=== PATIENT | male | born 1950 | race Hispanic/Latino ===

== ENCOUNTER 2017-11-28 20:05 | Emergency (ER) | payer MEDICARE ==
[~2017-11-28 20:05] MED LIST: ASPI-1181 PO; CLOP75TA32 PO; INSU100I24 SQ; LISI10TA7 PO; METF500T6 PO; METO50TA18 PO; PRAV40TA3 PO; PREG200C PO
== END 2017-11-28 20:58 | disposition home or self-care (01) ==
LOC: EDH 20:05
DX: T81.89XD Other complications of procedures, not elsewhere classified, subsequent encounter (principal); I10 Essential (primary) hypertension; E78.5 Hyperlipidemia, unspecified; E11.9 Type 2 diabetes mellitus without complications; I25.10 Atherosclerotic heart disease of native coronary artery without angina pectoris; Z95.1 Presence of aortocoronary bypass graft; Z98.890 Other specified postprocedural states
CPT/HCPCS: 99281

== ENCOUNTER → 2018-02-12 | Outpatient (CLI) | payer MEDICARE | END | disposition home or self-care (01) | LOC: SHCH 10:00 | PROVIDERS: ATTEND Internal Medicine Cardiovascular Disease | DX: I65.23 Occlusion and stenosis of bilateral carotid arteries (principal) | CPT/HCPCS: 93880 ==

== ENCOUNTER → 2018-08-05 | Outpatient (CLI) | payer MEDICARE ==
[~2018-08-05] MED LIST changes: +METF-444 PO; -METF500T6 PO
== END | disposition home or self-care (01) ==
LOC: SHCH 12:54
PROVIDERS: ATTEND Internal Medicine Cardiovascular Disease
DX: I65.23 Occlusion and stenosis of bilateral carotid arteries (principal); I73.9 Peripheral vascular disease, unspecified; R09.89 Other specified symptoms and signs involving the circulatory and respiratory systems; M19.90 Unspecified osteoarthritis, unspecified site; I10 Essential (primary) hypertension; I25.810 Atherosclerosis of coronary artery bypass graft(s) without angina pectoris; E11.9 Type 2 diabetes mellitus without complications; E78.5 Hyperlipidemia, unspecified
CPT/HCPCS: 93880; 93970

== ENCOUNTER 2018-09-09 07:45 | Day surgery (SDC) | payer MEDICARE ==
[2018-09-04 13:35] VITALS: BP 150/76
[2018-09-04 13:43] LABS: EOSINOPHILS % (AUTO) 4.1 % (0.0-8.0); HEMATOCRIT 37.1 % (42-54); LYMPHOCYTES % (AUTO) 19.7 % (21.0-51.0); MEAN CORPUSCULAR HEMOGLOBIN 29.1 pg (27.0-33.0); MEAN CORPUSCULAR HGB CONC 33.1 g/dL (32.0-36.0); MONOCYTES % (AUTO) 9.7 % (3.0-13.0); NEUTROPHILS % (AUTO) 65.5 % (40.0-77.0); PLATELET COUNT (AUTO) 186 K/uL (130-400); RED BLOOD CELL COUNT(AUTO) 4.22 MIL/uL (4.50-6.20); RED CELL DISTRIBUTION WIDTH 16.3 % (11.0-15.5); WHITE BLOOD COUNT (AUTO) 8.8 K/uL (4.8-10.8)
[2018-09-04 13:51] LABS: APPEARANCE,URINE Clear (CLEAR); BILIRUBIN,URINE Negative (NEGATIVE); COLOR,URINE Yellow (YELLOW); GLUCOSE, URINE (UA) Negative (NEGATIVE); KETONES,URINE Negative (NEGATIVE); LEUKOCYTE ESTERASE ,URINE Negative (NEGATIVE); NITRATE,URINE Negative (NEGATIVE); OCCULT BLOOD,URINE Negative (NEGATIVE); PROTEIN,URINE Negative (NEGATIVE); UROBILINOGEN,URINE 0.2 mg/dL (0.2-1.0)
[2018-09-04 13:52] LABS: CREATININE 1.2 mg/dL (0.5-1.5); POTASSIUM 4.6 mmol/L (3.5-5.1)
[2018-09-04 14:11] LABS: INR 1.01 (0.85-1.15); PROTHROMBIN TIME 10.6 SEC (9.6-11.6)
[2018-09-04 14:18] LABS: PARTIAL THROMBOPLASTIN TIME 26.4 SEC (26.3-35.5)
[2018-09-09] VITALS (21 sets, daily range): BP systolic 134–185; BP diastolic 79–103
[~2018-09-09] VITALS: Ht 172.7 cm; Wt 95.3 kg
[2018-09-09] MEDS ORDERED: SODIUM CHLORIDE 0.9% 1000ML 1,000 ML IV ONE (08:51)
[2018-09-09] MEDS ORDERED: HEPARIN SODIUM 1000UNIT/ML 10ML VIAL ONE (11:09)
[2018-09-09] MEDS ORDERED: NITROGLYCERIN 5 MG/ML 10 ML VIAL IV ONE (11:09)
[2018-09-09] MEDS ORDERED: LIDOCAINE HCL-MPF 2% 5ML VIAL ONE ×2 (11:09→12:07)
[2018-09-09] MEDS ORDERED: IODIXANOL 320 MG/ML 100 ML VIAL ONE (11:10)
[2018-09-09] MEDS ORDERED: MIDAZOLAM HCL 1 MG/ML 2ML VIAL ONE (11:44)
[2018-09-09] MEDS ORDERED: MEPERIDINE-PF 25 MG/ML SYG ONE (11:45)
[2018-09-09] MEDS ORDERED: SODIUM CHLORIDE 0.9% 1000ML 1,000 ML IV SCH (13:03)
[2018-09-09] MEDS ORDERED: CLOPIDOGREL BISULFATE 75 MG TAB ONE (13:04)
[2018-09-09] MEDS ORDERED: ASPIRIN 81MG TAB.CHEW ONE (13:04)
[2018-09-09] MEDS ORDERED: LABETALOL 20 MG/4 ML DISP.SYRIN IV PRN (13:15)
[2018-09-09] MEDS ORDERED: DEXTROSE 50%-WATER 50 ML DISP.SYRIN IV PRN (13:15)
[2018-09-09] MEDS ORDERED: GLUCAGON 1MG KIT 1 MG ML IM PRN (13:15)
[2018-09-09] MEDS ORDERED: ACETAMINOPHEN-CODEINE 300/30MG TAB PO PRN (13:15)
[2018-09-09] MEDS ORDERED: ATROPINE SULFATE 0.1 MG/ML 10 ML SYG IVP ONE (13:30)
[2018-09-09] MEDS ORDERED: INSULIN HUMULIN R 100 UNIT/ML 3ML SQ SCH (16:30)
== END 2018-09-09 19:01 | disposition home or self-care (01) ==
LOC: DAH 07:45
PROVIDERS: ATTEND Internal Medicine Cardiovascular Disease
DX: I70.245 Atherosclerosis of native arteries of left leg with ulceration of other part of foot (principal); I10 Essential (primary) hypertension; E78.5 Hyperlipidemia, unspecified; E11.319 Type 2 diabetes mellitus with unspecified diabetic retinopathy without macular edema; I65.21 Occlusion and stenosis of right carotid artery; I65.22 Occlusion and stenosis of left carotid artery; I25.810 Atherosclerosis of coronary artery bypass graft(s) without angina pectoris; I65.23 Occlusion and stenosis of bilateral carotid arteries; Z79.82 Long term (current) use of aspirin; Z79.899 Other long term (current) drug therapy; Z98.890 Other specified postprocedural states; Z95.1 Presence of aortocoronary bypass graft; Z87.891 Personal history of nicotine dependence
CPT/HCPCS: 36415 ×2; 37221; 37224; 71045; 75625; 75710; 80048; 81003; 82948 ×3; 85025; 85347; 85610; 85730; 93005; A4606; C1725; C1769; C1876; C1893; C1894; J0461; J1644 ×2; J3490 ×3; J7030; Q9967; J2175; J2250

== ENCOUNTER → 2019-11-09 | Outpatient (CLI) | payer MEDICARE ==
[~2019-11-09] MED LIST changes: +IOHEXOL-350 50ML VIAL IV ONE; +IOHEXOL-350 75 ML VIAL IV ONE
== END | disposition home or self-care (01) ==
LOC: RAH 08:34
PROVIDERS: ATTEND Internal Medicine Cardiovascular Disease
DX: I70.203 Unspecified atherosclerosis of native arteries of extremities, bilateral legs (principal); I74.3 Embolism and thrombosis of arteries of the lower extremities; I74.5 Embolism and thrombosis of iliac artery; I74.09 Other arterial embolism and thrombosis of abdominal aorta; I71.4 Abdominal aortic aneurysm, without rupture; I70.8 Atherosclerosis of other arteries; I25.10 Atherosclerotic heart disease of native coronary artery without angina pectoris; I51.7 Cardiomegaly; J98.11 Atelectasis; M47.815 Spondylosis without myelopathy or radiculopathy, thoracolumbar region; K44.9 Diaphragmatic hernia without obstruction or gangrene; Z89.9 Acquired absence of limb, unspecified; Z96.652 Presence of left artificial knee joint
CPT/HCPCS: 75635; Q9967 ×2

== ENCOUNTER 2019-12-22 08:55 | Day surgery (SDC) | payer MEDICARE ==
[2019-12-18 11:10] VITALS: BP 136/72
[2019-12-18 11:31] LABS: BASOPHILS % (AUTO) 0.9 % (0.0-5.0); EOSINOPHILS % (AUTO) 5.1 % (0.0-8.0); HEMATOCRIT 41.9 % (42-54); LYMPHOCYTES % (AUTO) 16.8 % (21.0-51.0); MEAN CORPUSCULAR HEMOGLOBIN 29.9 pg (27.0-33.0); MEAN CORPUSCULAR HGB CONC 32.2 g/dL (32.0-36.0); MEAN CORPUSCULAR VOLUME 92.9 fL (79-99); MONOCYTES % (AUTO) 9.1 % (3.0-13.0); NEUTROPHILS % (AUTO) 67.8 % (40.0-77.0); PLATELET COUNT (AUTO) 207 K/uL (130-400); RED BLOOD CELL COUNT(AUTO) 4.51 MIL/uL (4.50-6.20); RED CELL DISTRIBUTION WIDTH 14.2 % (11.0-15.5); WHITE BLOOD COUNT (AUTO) 10.6 K/uL (4.8-10.8)
[2019-12-18 11:36] LABS: APPEARANCE,URINE Clear (CLEAR); BILIRUBIN,URINE Negative (NEGATIVE); COLOR,URINE Yellow (YELLOW); GLUCOSE, URINE (UA) Negative (NEGATIVE); KETONES,URINE Negative (NEGATIVE); LEUKOCYTE ESTERASE ,URINE Negative (NEGATIVE); NITRATE,URINE Negative (NEGATIVE); OCCULT BLOOD,URINE Negative (NEGATIVE); PROTEIN,URINE Negative (NEGATIVE)
[2019-12-18 11:40] LABS: CREATININE 1.5 mg/dL (0.5-1.5); POTASSIUM 4.8 mmol/L (3.5-5.1)
[2019-12-18 12:01] LABS: PARTIAL THROMBOPLASTIN TIME 26.1 SEC (26.3-35.5); PROTHROMBIN TIME 10.5 SEC (9.6-11.6)
--- NOTE | 2019-12-18 12:37 | NUR ---
WOUND LEFT FOOT WOUND, DRAINING, COVERED, SEES WOUND CARE . PER JUNIE RAIN INFECTION CONTROL, PLACE ON CONTACT PREC. Addendum: 12/18/19 at 1238 by SAL AMAYA RN RN Amended: Links added.
--- NOTE | 2019-12-18 13:54 | NUR ---
DODIE GARCIA INFORMED THAT PT IS TAKING ANTIBIOTICS FOR LEFT FOOT WOUND. NO FURTHER ORDERS, MAY PROCEED WITH PLANNED PROCEDURE.
--- NOTE | 2019-12-21 14:59 | NUR ---
LABS INFORMED DODIE CANTU OF ABNORMAL BUN/CREA. ORDERS RECEIVED TO HYDRATE PT ON ARRIVAL DOS WITH NS @150ML/HR AND REPEAT BMP.
[~2019-12-22] VITALS: Ht 170.2 cm; Wt 91.6 kg
[2019-12-22] VITALS (22 sets, daily range): BP systolic 104–140; BP diastolic 64–79
[~2019-12-22 08:55] MED LIST changes: +DOXY100C40 PO; +HYDR12.54 PO; -IOHEXOL-350 50ML VIAL IV ONE; -IOHEXOL-350 75 ML VIAL IV ONE; +LINA5TAB PO; -METF-444 PO; -METO50TA18 PO; +SODIUM CHLORIDE 0.9% 1000ML 1,000 ML IV SCH; +SODIUM CHLORIDE 0.9% 500ML 500 ML IV SCH
[2019-12-22 12:15] LABS: CREATININE 1.2 mg/dL (0.5-1.5); POTASSIUM 4.1 mmol/L (3.5-5.1)
[2019-12-22] MEDS ORDERED: MEPERIDINE-PF 25 MG/ML SYG ONE ×2 (12:50→14:11)
[2019-12-22] MEDS ORDERED: HEPARIN SODIUM 1000UNIT/ML 10ML VIAL ONE (12:50)
[2019-12-22] MEDS ORDERED: IODIXANOL 320 MG/ML 100 ML VIAL ONE (12:50)
[2019-12-22] MEDS ORDERED: MIDAZOLAM HCL 1 MG/ML 2ML VIAL ONE ×2 (12:50→14:11)
[2019-12-22] MEDS ORDERED: LIDOCAINE HCL 2% 20ML ONE (12:51)
[2019-12-22] MEDS ORDERED: NITROGLYCERIN 1 MG/VIAL VIAL IV ONE (12:56)
[2019-12-22] MEDS ORDERED: SODIUM BICARB 50MEQ 50ML VIAL ONE (12:56)
[2019-12-22] MEDS ORDERED: GLUCAGON 1MG KIT 1 MG ML IM PRN (14:45)
[2019-12-22] MEDS ORDERED: SODIUM CHLORIDE 0.9% 1000ML 1,000 ML IV SCH (14:45)
[2019-12-22] MEDS ORDERED: DEXTROSE 50%-WATER 50 ML DISP.SYRIN IV PRN (14:45)
[2019-12-22] MEDS ORDERED: ACETAMINOPHEN-CODEINE 300/30MG TAB PO PRN ×2 (14:45)
[2019-12-22] MEDS ORDERED: INSULIN HUMULIN R 100 UNIT/ML 3ML SQ SCH (16:30)
[2019-12-22] MEDS ORDERED: ATROPINE SULFATE 0.1 MG/ML 10 ML SYG IVP ONE (17:02)
--- NOTE | 2019-12-22 18:40 | NUR ---
Pt settled into room 221. Report called to JUNIE Lehman prior to taking pt upstairs. Care rendered over to JUNIE Lehman at bedside. Site to right groin remains soft, with minimal tenderness, dressing remains dry, clean and intact. Pt and JUNIE Lehman report no further questions at this time.
--- NOTE | 2019-12-22 18:40 | NUR ---
Patient arrived to room 221 with Chelo Perla RN. Patient's right groin site was assessed, it was soft, non-tender, clean dry and intact. popiteal pulse was palpated but weak with capillary refill to stump less than 3 seconds. Sensation was intact to all extremities, a/o x4. Vital signs were taken temp 97, pulse 72, respiratory rate 20, blood pressure 116/62, and O2 sat 98%.
== END 2019-12-22 22:15 | disposition home or self-care (01) ==
LOC: DAH 08:55
PROVIDERS: ATTEND Internal Medicine Cardiovascular Disease
DX: I70.212 Atherosclerosis of native arteries of extremities with intermittent claudication, left leg (principal); I10 Essential (primary) hypertension; E78.5 Hyperlipidemia, unspecified; E11.9 Type 2 diabetes mellitus without complications; I25.10 Atherosclerotic heart disease of native coronary artery without angina pectoris; Z79.82 Long term (current) use of aspirin; Z79.899 Other long term (current) drug therapy; Z89.511 Acquired absence of right leg below knee; Z98.890 Other specified postprocedural states; Z95.1 Presence of aortocoronary bypass graft; Z87.891 Personal history of nicotine dependence; Z79.4 Long term (current) use of insulin; Z83.3 Family history of diabetes mellitus; Z82.49 Family history of ischemic heart disease and other diseases of the circulatory system
CPT/HCPCS: 36415 ×2; 37224; 71045; 75625; 75710; 80048 ×2; 81003; 82948 ×2; 85025; 85610; 85730 ×2; 93005; 96360; 96361; A4215; A4216; A4221; A4222; A4223 ×3; A4606; A4663; C1769; C1893; C1894 ×2; C2623; J1644 ×2; J2175 ×2; J2250 ×2; J3490 ×3; J7030; Q9967; 99156; 99157; J0461

== ENCOUNTER 2023-12-30 06:40 | Day surgery (SDC) | payer OTHER ==
[2023-12-27 09:21] LABS: BASOPHILS # (AUTO) 0.09 K/uL (0.00-0.20); EOSINOPHILS # (AUTO) 0.27 K/uL (0.00-0.70); HEMATOCRIT 44.1 % (42-54); IMMATURE GRANULOCYTE ABSOLUTE 0.04 K/uL (0-1); LYMPHOCYTES # (AUTO) 1.6 K/uL (1.0-4.8); LYMPHOCYTES % (AUTO) 18.2 % (21.0-51.0); MEAN CORPUSCULAR HEMOGLOBIN 29.8 pg (27.0-33.0); MEAN CORPUSCULAR HGB CONC 32.2 g/dL (32.0-36.0); MEAN CORPUSCULAR VOLUME 92.5 fL (79-99); MONOCYTES # (AUTO) 0.6 K/uL (0.1-1.0); MONOCYTES % (AUTO) 6.5 % (3.0-13.0); NEUTROPHILS # (AUTO) 6.4 K/uL (1.8-7.7); NEUTROPHILS % (AUTO) 70.9 % (40.0-77.0); PLATELET COUNT (AUTO) 246 K/uL (130-400); RED BLOOD CELL COUNT(AUTO) 4.77 MIL/uL (4.50-6.20); RED CELL DISTRIBUTION WIDTH 15.7 % (11.0-15.5)
[2023-12-27 09:30] LABS: CREATININE 1.4 mg/dL (0.5-1.5); POTASSIUM 4.9 mmol/L (3.5-5.1)
[2023-12-27 09:34] LABS: INR 0.97 (0.85-1.15); PROTHROMBIN TIME 11.3 SEC (9.6-11.6)
[2023-12-27 09:35] LABS: PARTIAL THROMBOPLASTIN TIME 27.4 SEC (26.3-35.5)
[2023-12-27 09:39] VITALS: BP 165/75; PULSE 120; RESP 18
[2023-12-27 09:45] LABS: B-TYPE NATRIURETIC PEPTIDE 512 pg/mL (0-100)
[2023-12-30] VITALS (11 sets, daily range): BP systolic 94–146; BP diastolic 54–72; PULSE 71–92; RESP 10–16
[~2023-12-30] VITALS: Ht 170.2 cm; Wt 71.9 kg
[~2023-12-30 06:40] MED LIST changes: -ASPI-1181 PO; +ASPI-1443 PO; +DOXY-469 PO; -DOXY100C40 PO; +LISI10TA24 PO; -LISI10TA7 PO; -SODIUM CHLORIDE 0.9% 1000ML 1,000 ML IV SCH; -SODIUM CHLORIDE 0.9% 500ML 500 ML IV SCH
[2023-12-30] MEDS ORDERED: 0.9%NACL 1000ML 1,000 ML IV ONE (07:09)
[2023-12-30] MEDS ORDERED: HEPARIN 10,000 UNIT/10ML (1,000 UNIT/ML) VIAL ONE (07:36)
[2023-12-30] MEDS ORDERED: SODIUM BICARB 50MEQ 50ML VIAL 50 ML ONE (07:36)
[2023-12-30] MEDS ORDERED: IOHEXOL-350 50ML VIAL IV ONE (07:36)
[2023-12-30] MEDS ORDERED: LIDOCAINE HCL 400MG/20ML VIAL ONE (07:36)
[2023-12-30] MEDS ORDERED: IOHEXOL 350 MG/ML 100ML INFUS..BTL IV ONE (07:36)
[2023-12-30] MEDS ORDERED: MEPERIDINE-PF 25 MG/ML SYG ONE ×3 (07:37→09:01)
[2023-12-30] MEDS ORDERED: MIDAZOLAM HCL 1 MG/ML 2ML VIAL ONE ×3 (07:37→09:01)
[2023-12-30] MEDS ORDERED: NITROGLYCERIN 50MG VIAL ONE (07:38)
[2023-12-30] MEDS ORDERED: INSLAN SQ (07:42)
[2023-12-30] MEDS ORDERED: MIDO5TAB4 PO (07:42)
[2023-12-30] MEDS ORDERED: TAMS-1 PO (07:42)
[2023-12-30] MEDS ORDERED: METO25TA3 PO (07:42)
[2023-12-30] MEDS ORDERED: LOSA25TA41 PO (07:42)
[2023-12-30] MEDS ORDERED: METF-444 PO (07:42)
[2023-12-30] MEDS ORDERED: ATROPINE 1MG SYG IVP ONE (09:48)
[2023-12-30] MEDS ORDERED: IOHEXOL-350 75 ML VIAL IV ONE (10:10)
[2023-12-30] MEDS ORDERED: LABETALOL 20MG SYG IV ONE (10:30)
[2023-12-30] MEDS ORDERED: CLOPIDOGREL 300MG TAB ONE (10:33)
[2023-12-30] MEDS ORDERED: ASPIRIN 325MG EC TAB PO ONE (10:33)
[2023-12-30] MEDS ORDERED: ACETAMINOPHEN WITH CODEINE 1 TAB TAB PO PRN ×2 (11:00)
[2023-12-30] MEDS ORDERED: ONDANSETRON 4MG INJ IVP PRN (11:00)
== END 2023-12-30 15:20 | disposition home or self-care (01) ==
LOC: DAH 06:40
PROVIDERS: ATTEND Internal Medicine Cardiovascular Disease
DX: I25.119 Atherosclerotic heart disease of native coronary artery with unspecified angina pectoris (principal); I25.5 Ischemic cardiomyopathy; R57.0 Cardiogenic shock; I25.82 Chronic total occlusion of coronary artery; I25.719 Atherosclerosis of autologous vein coronary artery bypass graft(s) with unspecified angina pectoris; I49.3 Ventricular premature depolarization; I72.8 Aneurysm of other specified arteries; E11.22 Type 2 diabetes mellitus with diabetic chronic kidney disease; I12.9 Hypertensive chronic kidney disease with stage 1 through stage 4 chronic kidney disease, or unspecified chronic kidney disease; N18.31 Chronic kidney disease, stage 3a; E11.51 Type 2 diabetes mellitus with diabetic peripheral angiopathy without gangrene; E11.319 Type 2 diabetes mellitus with unspecified diabetic retinopathy without macular edema; I25.2 Old myocardial infarction; E78.5 Hyperlipidemia, unspecified; Z86.73 Personal history of transient ischemic attack (TIA), and cerebral infarction without residual deficits; Z87.891 Personal history of nicotine dependence; Z82.49 Family history of ischemic heart disease and other diseases of the circulatory system; Z79.82 Long term (current) use of aspirin; Z79.01 Long term (current) use of anticoagulants; Z79.899 Other long term (current) drug therapy; Z95.5 Presence of coronary angioplasty implant and graft
CPT/HCPCS: 80048; 83880; 85025; 85610; 85730; 36415 ×2; 71045; 93005; 85347 ×2; 82948 ×2; 76882; 93459; C9600; C1769 ×4; C1894 ×3; C1874 ×2; C1760; C1887 ×2; C1725 ×2; J3490 ×3; J7030; J1644 ×3; J2250 ×3; J2175 ×3; Q9967; A4215; A4222; A4221; A4663; A4216; A4606; C9601; Q9965 ×2; A4223 ×3; 99156; 99157; J0461

== ENCOUNTER 2024-05-24 18:10 | Inpatient (IN) | payer OTHER ==
[~2024-05-24] VITALS: Ht 170.2 cm; Wt 80.4 kg
[~2024-05-24 18:10] MED LIST changes: -ASPI-1443 PO; -DOXY-469 PO; -HYDR12.54 PO; +INSLAN SQ; -INSU100I24 SQ; -LINA5TAB PO; -LISI10TA24 PO; +LOSA25TA41 PO; +METF-444 PO; +METO25TA3 PO; +MIDO5TAB4 PO; +TAMS-1 PO
[2024-05-24 18:44] LABS: BASOPHILS # (AUTO) 0.08 K/uL (0.00-0.20); BASOPHILS % (AUTO) 1.2 % (0.0-5.0); EOSINOPHILS % (AUTO) 1.5 % (0.0-8.0); HEMATOCRIT 35.9 % (42-54); LYMPHOCYTES # (AUTO) 0.9 K/uL (1.0-4.8); LYMPHOCYTES % (AUTO) 13.3 % (21.0-51.0); MEAN CORPUSCULAR HEMOGLOBIN 30.6 pg (27.0-33.0); MEAN CORPUSCULAR HGB CONC 32.9 g/dL (32.0-36.0); MEAN CORPUSCULAR VOLUME 93.2 fL (79-99); MONOCYTES # (AUTO) 0.6 K/uL (0.1-1.0); MONOCYTES % (AUTO) 9.5 % (3.0-13.0); NEUTROPHILS # (AUTO) 4.9 K/uL (1.8-7.7); NEUTROPHILS % (AUTO) 74.5 % (40.0-77.0); PLATELET COUNT (AUTO) 197 K/uL (130-400); RED BLOOD CELL COUNT(AUTO) 3.85 MIL/uL (4.50-6.20); RED CELL DISTRIBUTION WIDTH 15.5 % (11.0-15.5); WHITE BLOOD COUNT (AUTO) 6.5 K/uL (4.8-10.8)
[2024-05-24 19:02] LABS: CREATININE 1.7 mg/dL (0.5-1.3); POTASSIUM 4.6 mmol/L (3.5-5.1)
[2024-05-24 19:11] LABS: ALBUMIN 3.3 g/dL (3.5-5.0); BILIRUBIN,TOTAL 0.7 mg/dL (0.2-1.0); MAGNESIUM 1.6 mg/dL (1.80-2.40); TOTAL PROTEIN, SERUM 7.1 g/dL (6.0-8.3)
[2024-05-24 19:28] LABS: B-TYPE NATRIURETIC PEPTIDE 2010 pg/mL (0-100)
[2024-05-24 19:54] LABS: INR 1.26 (0.85-1.15); PARTIAL THROMBOPLASTIN TIME 27.8 SEC (26.3-35.5); PROTHROMBIN TIME 13.1 SEC (9.6-11.6)
[2024-05-24] MEDS: ENOXAPARIN SODIUM 80 MG/0.8 ML SQ ONE (21:02)
[2024-05-24] MEDS: METOPROLOL TARTRATE 1 MG/ML 5ML VIAL IV ONE (21:05)
[2024-05-24] MEDS: MAGNESIUM 2GM PREMIX 50ML 50 ML IV SCH (21:05)
[2024-05-24] MEDS ORDERED: HYDRALAZINE 20MG/ML VIAL IV PRN (21:30)
[2024-05-24] MEDS ORDERED: POTASSIUM CHLORIDE 10% ELIXIR 20 MEQ/15 ML UDCUP PO PRN (21:30)
[2024-05-24] MEDS ORDERED: POTASSIUM CHLORIDE 20MEQ/100ML 100 ML IV PRN (21:30)
[2024-05-24] MEDS ORDERED: NITROGLYCERIN 0.4 MG SL TAB SL PRN (21:30)
[2024-05-24] MEDS ORDERED: ONDANSETRON 4MG INJ IV PRN (21:30)
[2024-05-25] VITALS (10 sets, daily range): BP systolic 99–127; BP diastolic 56–71; PULSE 74–98; RESP 18–20; TEMP 98.9; O2SAT 96–99
[2024-05-25 00:40] LABS: APPEARANCE,URINE CLEAR (CLEAR); BILIRUBIN,URINE NEGATIVE (NEGATIVE); COLOR,URINE YELLOW (YELLOW); GLUCOSE, URINE (UA) NEGATIVE (NEGATIVE); KETONES,URINE NEGATIVE (NEGATIVE); LEUKOCYTE ESTERASE ,URINE NEGATIVE Leu/uL (NEGATIVE); NITRATE,URINE NEGATIVE (NEGATIVE); OCCULT BLOOD,URINE NEGATIVE (NEGATIVE); PH,URINE 5.5 (5.0-8.0); PROTEIN,URINE 50 mg/dL (NEGATIVE)
[2024-05-25 00:45] LABS: ADD UA MICROSCOPIC YES
[2024-05-25 00:58] LABS: MUCUS,URINE RARE LPF (None Seen); SQUAMOUS EPITHELIAL CELL,UR RARE /HPF (0-2)
[2024-05-25] MEDS ORDERED: PREG300C20 PO (01:54)
[2024-05-25] MEDS ORDERED: TAMS-1 PO (01:54)
[2024-05-25] MEDS ORDERED: METF-444 PO (01:54)
[2024-05-25] MEDS ORDERED: FURO20TA4 PO (01:54)
[2024-05-25] MEDS ORDERED: DAPA10TA PO (01:54)
[2024-05-25] MEDS ORDERED: PANT40TA54 PO (01:54)
[2024-05-25] MEDS ORDERED: ASPI-1443 PO (01:54)
[2024-05-25] MEDS ORDERED: PRAV80TA21 PO (01:54)
[2024-05-25 06:34] LABS: BASOPHILS # (AUTO) 0.05 K/uL (0.00-0.20); BASOPHILS % (AUTO) 0.9 % (0.0-5.0); EOSINOPHILS # (AUTO) 0.11 K/uL (0.00-0.70); EOSINOPHILS % (AUTO) 1.9 % (0.0-8.0); HEMATOCRIT 34.2 % (42-54); IMMATURE GRANULOCYTE ABSOLUTE 0.02 K/uL (0-1); LYMPHOCYTES # (AUTO) 1.3 K/uL (1.0-4.8); LYMPHOCYTES % (AUTO) 21.6 % (21.0-51.0); MEAN CORPUSCULAR HEMOGLOBIN 29.7 pg (27.0-33.0); MEAN CORPUSCULAR HGB CONC 32.2 g/dL (32.0-36.0); MEAN CORPUSCULAR VOLUME 92.4 fL (79-99); MONOCYTES # (AUTO) 1.1 K/uL (0.1-1.0); MONOCYTES % (AUTO) 19.5 % (3.0-13.0); NEUTROPHILS # (AUTO) 3.3 K/uL (1.8-7.7); NEUTROPHILS % (AUTO) 55.8 % (40.0-77.0); PLATELET COUNT (AUTO) 181 K/uL (130-400); RED CELL DISTRIBUTION WIDTH 15.7 % (11.0-15.5); WHITE BLOOD COUNT (AUTO) 5.8 K/uL (4.8-10.8)
[2024-05-25 06:59] LABS: ALBUMIN 2.9 g/dL (3.5-5.0); BILIRUBIN,TOTAL 0.7 mg/dL (0.2-1.0); CREATININE 1.7 mg/dL (0.5-1.3); MAGNESIUM 1.9 mg/dL (1.80-2.40); POTASSIUM 4.5 mmol/L (3.5-5.1); THYROID STIMULATING HORMONE 1.45 uIU/mL (0.36-3.74); TOTAL PROTEIN, SERUM 6.5 g/dL (6.0-8.3)
[2024-05-25 07:06] LABS: HEMOGLOBIN A1C 6.9 % (4.0-6.0)
[2024-05-25 07:20] LABS: B-TYPE NATRIURETIC PEPTIDE 93 pg/mL (0-100)
[2024-05-25] MEDS: CLOPIDOGREL 75MG TAB PO SCH (09:28)
[2024-05-25] MEDS: FAMOTIDINE 20MG TAB PO SCH (09:28)
[2024-05-25] MEDS: ASPIRIN 81 MG EC TAB PO SCH (09:28)
[2024-05-25] MEDS: METOPROLOL SUCCINATE 25 MG TAB.SR.24H PO SCH (09:28)
[2024-05-25] MEDS: ACETAMINOPHEN 325 MG TAB PO PRN (09:30)
[2024-05-25] MEDS: HEPARIN 5,000 UNIT VIAL SQ SCH (09:33)
[2024-05-25] MEDS: FUROSEMIDE 20MG VIAL IV SCH (10:32)
[2024-05-25] MEDS: BALSAM PERU/CASTOR OIL 60 GM TUBE TP SCH (15:07)
[2024-05-25] MEDS: ATORVASTATIN 40 MG TABLET PO SCH (20:52)
[2024-05-26] VITALS (8 sets, daily range): BP systolic 100–138; BP diastolic 62–75; PULSE 66–95; RESP 17–19; O2SAT 97–99
[2024-05-26 05:13] LABS: HEMATOCRIT 36.7 % (42-54); MEAN CORPUSCULAR HEMOGLOBIN 30.6 pg (27.0-33.0); MEAN CORPUSCULAR HGB CONC 31.6 g/dL (32.0-36.0); MEAN CORPUSCULAR VOLUME 96.8 fL (79-99); RED BLOOD CELL COUNT(AUTO) 3.79 MIL/uL (4.50-6.20); RED CELL DISTRIBUTION WIDTH 15.6 % (11.0-15.5); WHITE BLOOD COUNT (AUTO) 6.5 K/uL (4.8-10.8)
[2024-05-26 05:36] LABS: CREATININE 1.8 mg/dL (0.5-1.3); POTASSIUM 3.7 mmol/L (3.5-5.1)
[2024-05-26] MEDS ORDERED: METO-408 PO (07:54)
[2024-05-26] MEDS: (Dapagliflozin Propanediol (Farxiga) 10 MG) PO SCH (09:00)
[2024-05-26] MEDS: TAMSULOSIN HCL 0.4 MG CAP.ER.24H PO SCH (09:59)
[2024-05-26] MEDS: ACETAMINOPHEN 325 MG TAB PO PRN (13:49)
[2024-05-26] MEDS: FUROSEMIDE 20MG VIAL IV SCH (18:34)
[2024-05-26 20:43] LABS: COVID19 (SARS ANTIGEN RAPID) PRESUMPTIVE NEGATIVE (NEGATIVE); INFLUENZA TYPE A Negative For Type A (NEGATIVE); INFLUENZA TYPE B Negative For Type B (NEGATIVE)
[2024-05-27 04:29] VITALS: BP 106/74; PULSE 72; RESP 17
[2024-05-27 05:27] LABS: BASOPHILS # (AUTO) 0.06 K/uL (0.00-0.20); EOSINOPHILS # (AUTO) 0.47 K/uL (0.00-0.70); EOSINOPHILS % (AUTO) 7.6 % (0.0-8.0); HEMATOCRIT 35.3 % (42-54); IMMATURE GRANULOCYTE ABSOLUTE 0.02 K/uL (0-1); LYMPHOCYTES # (AUTO) 1.5 K/uL (1.0-4.8); MEAN CORPUSCULAR VOLUME 93.6 fL (79-99); MONOCYTES # (AUTO) 0.7 K/uL (0.1-1.0); MONOCYTES % (AUTO) 10.5 % (3.0-13.0); NEUTROPHILS # (AUTO) 3.4 K/uL (1.8-7.7); NEUTROPHILS % (AUTO) 55.6 % (40.0-77.0); PLATELET COUNT (AUTO) 186 K/uL (130-400); RED BLOOD CELL COUNT(AUTO) 3.77 MIL/uL (4.50-6.20); RED CELL DISTRIBUTION WIDTH 15.5 % (11.0-15.5); WHITE BLOOD COUNT (AUTO) 6.2 K/uL (4.8-10.8)
[2024-05-27 05:51] LABS: ALBUMIN 2.9 g/dL (3.5-5.0); BILIRUBIN,TOTAL 0.5 mg/dL (0.2-1.0); CREATININE 1.5 mg/dL (0.5-1.3); POTASSIUM 3.4 mmol/L (3.5-5.1); THYROID STIMULATING HORMONE 2.14 uIU/mL (0.36-3.74); TOTAL PROTEIN, SERUM 6.6 g/dL (6.0-8.3)
[2024-05-27] MEDS: KCL 20 MEQ ERTAB PO PRN (06:46)
[2024-05-27 07:57] VITALS: BP 113/59; PULSE 80; RESP 16
[2024-05-27 09:00] VITALS: O2SAT 100
[2024-05-27] MEDS: SACUBITRIL/VALSARTAN 1 EACH TABLET PO SCH (10:12)
[2024-05-27 10:57] VITALS: BP 122/67; PULSE 85; RESP 20
[2024-05-27] MEDS ORDERED: FUROSEMIDE 20MG VIAL IV SCH (11:30)
[2024-05-27 16:32] VITALS: BP 107/73; PULSE 87; RESP 18
[2024-05-27] MEDS: FUROSEMIDE 20MG VIAL IV SCH (17:52)
[2024-05-27 20:00] VITALS: BP 104/58; PULSE 56; RESP 18; O2SAT 95
[2024-05-27] MEDS: INSULIN HUMULIN R 100 UNIT/ML 3ML SQ SCH (20:52)
[2024-05-28] VITALS (7 sets, daily range): BP systolic 101–128; BP diastolic 52–71; PULSE 81–91; RESP 16–20; O2SAT 95–97
[2024-05-28 04:30] LABS: CREATININE 1.4 mg/dL (0.5-1.3); MAGNESIUM 1.6 mg/dL (1.80-2.40); POTASSIUM 3.7 mmol/L (3.5-5.1)
[2024-05-28] MEDS: SACUBITRIL/VALSARTAN 1 EACH TABLET PO SCH (09:00)
[2024-05-28] MEDS: MAGNESIUM 2GM PREMIX 50ML 50 ML IV PRN (10:17)
[2024-05-28] MEDS ORDERED: IOHEXOL-350 50ML VIAL IV ONE (10:52)
[2024-05-28] MEDS ORDERED: LIDOCAINE HCL 400MG/20ML VIAL ONE (10:52)
[2024-05-28] MEDS ORDERED: BUPIVACAINE/PF 0.25% 30ML VIAL IJ ONE (11:06)
[2024-05-28] MEDS ORDERED: LIDOCAINE HCL 1% MDV 50ML VIAL ONE (11:06)
[2024-05-28] MEDS: TORSEMIDE 20 MG TAB PO SCH (12:16)
[2024-05-29] VITALS: BP 96/59; PULSE 84; RESP 19
[2024-05-29 04:00] VITALS: BP 99/57; PULSE 79; RESP 19
[2024-05-29 04:46] LABS: CREATININE 1.4 mg/dL (0.5-1.3); POTASSIUM 3.1 mmol/L (3.5-5.1)
[2024-05-29 08:00] VITALS: BP 106/65; PULSE 91; RESP 18; O2SAT 96
[2024-05-29] MEDS: POTASSIUM CHLORIDE 10MEQ SR TAB PO SCH (09:00)
[2024-05-29 12:00] VITALS: BP 112/64; PULSE 88; RESP 19
[2024-05-29 15:22] LABS: CREATININE 1.5 mg/dL (0.5-1.3); MAGNESIUM 1.7 mg/dL (1.80-2.40); POTASSIUM 3.6 mmol/L (3.5-5.1)
[2024-05-29 16:00] VITALS: BP 120/50; PULSE 93; RESP 19
[2024-05-29 20:00] VITALS: BP 110/56; PULSE 72; RESP 20
[2024-05-30] VITALS: BP 114/75; PULSE 93; RESP 20
[2024-05-30 04:00] VITALS: BP 126/64; PULSE 92; RESP 18
[2024-05-30 04:53] LABS: CREATININE 1.5 mg/dL (0.5-1.3); MAGNESIUM 2.1 mg/dL (1.80-2.40); POTASSIUM 4.1 mmol/L (3.5-5.1)
[2024-05-30 08:00] VITALS: BP 103/63; PULSE 91; RESP 18; O2SAT 96
[2024-05-30 11:46] VITALS: BP 130/63; PULSE 90; RESP 18
== END 2024-05-30 15:00 | DRG 291 ==
LOC: EDH 18:10 → EDHIP 21:27 → OBSVTOIN 21:27 → 4CH 05-25 01:00
PROVIDERS: ADMIT Internal Medicine; ATTEND Internal Medicine
DX: I13.0 Hypertensive heart and chronic kidney disease with heart failure and stage 1 through stage 4 chronic kidney disease, or unspecified chronic kidney disease (principal); I50.23 Acute on chronic systolic (congestive) heart failure; J96.01 Acute respiratory failure with hypoxia; E87.1 Hypo-osmolality and hyponatremia; J90 Pleural effusion, not elsewhere classified; I25.810 Atherosclerosis of coronary artery bypass graft(s) without angina pectoris; I48.92 Unspecified atrial flutter; I48.0 Paroxysmal atrial fibrillation; Z20.822 Contact with and (suspected) exposure to COVID-19; E83.42 Hypomagnesemia; N18.30 Chronic kidney disease, stage 3 unspecified; I25.5 Ischemic cardiomyopathy; E11.22 Type 2 diabetes mellitus with diabetic chronic kidney disease; E11.40 Type 2 diabetes mellitus with diabetic neuropathy, unspecified; E11.51 Type 2 diabetes mellitus with diabetic peripheral angiopathy without gangrene; E78.00 Pure hypercholesterolemia, unspecified; I08.0 Rheumatic disorders of both mitral and aortic valves; H54.61 Unqualified visual loss, right eye, normal vision left eye; I25.10 Atherosclerotic heart disease of native coronary artery without angina pectoris; I44.0 Atrioventricular block, first degree; I70.1 Atherosclerosis of renal artery; N40.0 Benign prostatic hyperplasia without lower urinary tract symptoms; L89.322 Pressure ulcer of left buttock, stage 2; L89.152 Pressure ulcer of sacral region, stage 2; Z79.02 Long term (current) use of antithrombotics/antiplatelets; Z79.82 Long term (current) use of aspirin; Z79.84 Long term (current) use of oral hypoglycemic drugs; Z79.899 Other long term (current) drug therapy; Z82.49 Family history of ischemic heart disease and other diseases of the circulatory system; Z83.3 Family history of diabetes mellitus; Z86.73 Personal history of transient ischemic attack (TIA), and cerebral infarction without residual deficits; I25.2 Old myocardial infarction; Z87.891 Personal history of nicotine dependence; Z89.511 Acquired absence of right leg below knee; Z95.5 Presence of coronary angioplasty implant and graft; Z95.810 Presence of automatic (implantable) cardiac defibrillator
CPT/HCPCS: 36415; 71045; 80048; 80053; 80061; 81001; 82948; 83036; 83735; 83880; 84443; 84484; 85025; 85027; 85610; 85730; 87426; 87804; 93005; 96365; 96375; 99291; G0378; J1644; J1650; J1815; J1940; J3475; J3490; Q9967; J0665

== ENCOUNTER 2024-07-20 08:50 | Day surgery (SDC) | payer OTHER ==
[2024-07-17 10:25] LABS: BASOPHILS # (AUTO) 0.06 K/uL (0.00-0.20); BASOPHILS % (AUTO) 0.7 % (0.0-5.0); EOSINOPHILS # (AUTO) 0.16 K/uL (0.00-0.70); HEMATOCRIT 35.8 % (42-54); IMMATURE GRANULOCYTE ABSOLUTE 0.02 K/uL (0-1); LYMPHOCYTES # (AUTO) 1.2 K/uL (1.0-4.8); LYMPHOCYTES % (AUTO) 14.2 % (21.0-51.0); MEAN CORPUSCULAR HEMOGLOBIN 29.3 pg (27.0-33.0); MEAN CORPUSCULAR HGB CONC 32.1 g/dL (32.0-36.0); MEAN CORPUSCULAR VOLUME 91.3 fL (79-99); MONOCYTES # (AUTO) 1.3 K/uL (0.1-1.0); MONOCYTES % (AUTO) 15.5 % (3.0-13.0); NEUTROPHILS # (AUTO) 5.5 K/uL (1.8-7.7); NEUTROPHILS % (AUTO) 67.4 % (40.0-77.0); PLATELET COUNT (AUTO) 146 K/uL (130-400); RED BLOOD CELL COUNT(AUTO) 3.92 MIL/uL (4.50-6.20); RED CELL DISTRIBUTION WIDTH 17.9 % (11.0-15.5); WHITE BLOOD COUNT (AUTO) 8.2 K/uL (4.8-10.8)
[2024-07-17 10:43] VITALS: BP 97/56; PULSE 86; RESP 16
[2024-07-17 10:46] LABS: INR 1.21 (0.85-1.15); PROTHROMBIN TIME 12.9 SEC (9.6-11.6)
[2024-07-17 10:47] LABS: PARTIAL THROMBOPLASTIN TIME 27.6 SEC (26.3-35.5)
[2024-07-17 11:04] LABS: CREATININE 1.5 mg/dL (0.5-1.3); POTASSIUM 4.8 mmol/L (3.5-5.1)
[2024-07-20] VITALS (10 sets, daily range): BP systolic 106–125; BP diastolic 61–79; PULSE 82–97; RESP 12–19
[~2024-07-20] VITALS: Ht 172.7 cm; Wt 76.7 kg
[~2024-07-20 08:50] MED LIST changes: +ASPI-1443 PO; +ATOR40TA71 PO; +CLOP-31 PO; -CLOP75TA32 PO; +DAPA10TA PO; +FAMO20TA8 PO; -INSLAN SQ; +INSU100V37 SQ; -LOSA25TA41 PO; -METF-444 PO; -METO25TA3 PO; +METO25TA6 PO; -MIDO5TAB4 PO; +NITR0.4T50 SL; +POTA-364 PO; -PRAV40TA3 PO; -PREG200C PO; +PREG300C20 PO; +SACU1TAB PO; +SEMA0.258 SQ; +TORSEMIDE PO
[2024-07-20] MEDS: 0.9%NACL 1000ML 1,000 ML IV ONE (10:00)
[2024-07-20] MEDS ORDERED: MEPERIDINE-PF 25 MG/ML SYG ONE ×2 (12:03→12:25)
[2024-07-20] MEDS ORDERED: LIDOCAINE HCL 1% MDV 50ML VIAL ONE (12:03)
[2024-07-20] MEDS ORDERED: ceFAZolin SODIUM 1 GM VIAL ONE (12:04)
[2024-07-20] MEDS ORDERED: MIDAZOLAM HCL 1 MG/ML 2ML VIAL ONE ×2 (12:04→12:26)
[2024-07-20] MEDS ORDERED: BUPIvacaine/PF 0.25% 30ML VIAL IJ ONE (12:04)
[2024-07-20] MEDS ORDERED: IOHEXOL-350 50ML VIAL IV ONE (12:22)
[2024-07-20] MEDS: ceFAZolin SODIUM 1 GM VIAL IVPB ONE (14:30)
[2024-07-20] MEDS ORDERED: ONDANSETRON 4MG INJ IV PRN (14:30)
[2024-07-20] MEDS ORDERED: DEXTROSE 50%-WATER 50 ML DISP.SYRIN IV PRN (14:30)
[2024-07-20] MEDS ORDERED: INSULIN humuLIN R 100 UNIT/ML 3ML SQ SCH (16:30)
[2024-07-20] MEDS ORDERED: DOXY100C5 PO (18:16)
[2024-07-20] MEDS: ceFAZolin SODIUM 1 GM VIAL IVPB SCH (18:34)
[2024-07-20] MEDS: ceFAZolin SODIUM 1 GM VIAL ONE (18:34)
== END 2024-07-20 19:25 | disposition home or self-care (01) ==
LOC: DAH 08:50
PROVIDERS: ATTEND Internal Medicine Cardiovascular Disease
DX: I25.5 Ischemic cardiomyopathy (principal); I11.0 Hypertensive heart disease with heart failure; I50.42 Chronic combined systolic (congestive) and diastolic (congestive) heart failure; R06.00 Dyspnea, unspecified; I44.7 Left bundle-branch block, unspecified; E78.5 Hyperlipidemia, unspecified; E11.9 Type 2 diabetes mellitus without complications; I25.10 Atherosclerotic heart disease of native coronary artery without angina pectoris; I25.2 Old myocardial infarction; Z95.1 Presence of aortocoronary bypass graft; Z86.73 Personal history of transient ischemic attack (TIA), and cerebral infarction without residual deficits; Z98.890 Other specified postprocedural states; Z79.4 Long term (current) use of insulin; Z79.01 Long term (current) use of anticoagulants; Z79.899 Other long term (current) drug therapy; Z87.891 Personal history of nicotine dependence
CPT/HCPCS: 80048; 85025; 85610; 85730; 36415; 93005 ×2; 33249; 33225; 82948; 71045; C1769 ×2; C1882; C1900; C1896; C1895; C1894; J0690 ×2; J7030; J0665; J2250 ×2; J2175 ×2; J3490; Q9967; A4215; A4222; A4221; A4663; A4216; A4606; A4223 ×3; 99156; 99157

== ENCOUNTER → 2024-08-20 | Outpatient (CLI) | payer OTHER ==
[~2024-08-20] MED LIST changes: +DOXY100C5 PO; +IOHEXOL 350 MG/ML 100ML INFUS..BTL IV ONE; +IOHEXOL-350 50ML VIAL IV ONE
== END | disposition home or self-care (01) ==
LOC: RAH 07:41
PROVIDERS: ATTEND Internal Medicine Cardiovascular Disease
DX: I73.9 Peripheral vascular disease, unspecified (principal); K55.1 Chronic vascular disorders of intestine; I70.0 Atherosclerosis of aorta
CPT/HCPCS: 75635; Q9967 ×2

== ENCOUNTER → 2024-09-23 | Outpatient (CLI) | payer OTHER ==
[~2024-09-23] MED LIST changes: -IOHEXOL 350 MG/ML 100ML INFUS..BTL IV ONE; -IOHEXOL-350 50ML VIAL IV ONE
[2024-09-23 12:11] LABS: BASOPHILS % (AUTO) 1.1 % (0.0-5.0); EOSINOPHILS # (AUTO) 0.21 K/uL (0.00-0.70); EOSINOPHILS % (AUTO) 2.2 % (0.0-8.0); HEMATOCRIT 39.7 % (42-54); IMMATURE GRANULOCYTE ABSOLUTE 0.04 K/uL (0-1); LYMPHOCYTES # (AUTO) 1.5 K/uL (1.0-4.8); LYMPHOCYTES % (AUTO) 16.3 % (21.0-51.0); MEAN CORPUSCULAR VOLUME 93.6 fL (79-99); MONOCYTES % (AUTO) 10.8 % (3.0-13.0); NEUTROPHILS # (AUTO) 6.5 K/uL (1.8-7.7); NEUTROPHILS % (AUTO) 69.2 % (40.0-77.0); PLATELET COUNT (AUTO) 229 K/uL (130-400); RED BLOOD CELL COUNT(AUTO) 4.24 MIL/uL (4.50-6.20); RED CELL DISTRIBUTION WIDTH 18.2 % (11.0-15.5); WHITE BLOOD COUNT (AUTO) 9.4 K/uL (4.8-10.8)
[2024-09-23 12:22] LABS: CREATININE 1.8 mg/dL (0.5-1.3); POTASSIUM 4.5 mmol/L (3.5-5.1)
[2024-09-23 12:25] LABS: INR 1.06 (0.85-1.15); PROTHROMBIN TIME 11.4 SEC (9.6-11.6)
== END | disposition home or self-care (01) ==
LOC: LAB 10:42
PROVIDERS: ATTEND Internal Medicine Cardiovascular Disease
DX: I73.9 Peripheral vascular disease, unspecified (principal); R06.02 Shortness of breath
CPT/HCPCS: 36415; 80048; 85025; 85610; 85730

== ENCOUNTER → 2024-10-05 | Outpatient (CLI) | payer OTHER ==
[2024-10-05 12:35] LABS: CREATININE 1.5 mg/dL (0.5-1.3); POTASSIUM 4.2 mmol/L (3.5-5.1)
== END | disposition home or self-care (01) ==
LOC: LAB 09:25
PROVIDERS: ATTEND Internal Medicine Cardiovascular Disease
DX: I10 Essential (primary) hypertension (principal)
CPT/HCPCS: 36415; 80048